=== PATIENT | male | born 1990 | race Caucasian/White ===

== ENCOUNTER 2019-05-11 12:57 | Emergency (ER) | payer BC, MEDICAID, OTHER ==
[~2019-05-11] VITALS: Ht 167.6 cm; Wt 99.8 kg
[2019-05-11 13:02] VITALS: BP 148/94
[2019-05-11] MEDS ORDERED: KETOROLAC TROMETH 60MG/2ML VIAL IM ONE (14:30)
== END 2019-05-11 14:48 | disposition home or self-care (01) ==
LOC: ER 12:57
DX: M54.16 Radiculopathy, lumbar region (principal); G89.29 Other chronic pain; Z88.6 Allergy status to analgesic agent
CPT/HCPCS: 96372; 99283; J1885